=== PATIENT | male | born 1970 | race Caucasian/White ===

== ENCOUNTER → 2017-06-02 | Outpatient (CLI) | payer OTHER ==
--- NOTE | 2017-06-02 16:21 | RAD ---
Ultrasound testicular/scrotum 06/02/2017 Clinical indication: Right scrotal mass and swelling. Comparison: None. Findings: Right testis measures 3.3 x 4.4 x 2.3 cm with homogeneous echotexture and intratesticular blood flow identified. There is a small right varicocele. The visualized right epididymis is unremarkable. The left testis measures 4.4 x 3.0 x 2.5 cm with homogeneous echotexture and intratesticular blood flow identified. There is a trace left hydrocele. The left epididymis is unremarkable. Impression: 1. Small right-sided varicocele. Unilateral right varicocele, may be primary, though CT abdomen and pelvis is recommended to exclude secondary varicocele due to obstructive mass. 2. No intratesticular mass identified.
== END | disposition home or self-care (01) ==
LOC: PMG 08:41
PROVIDERS: ATTEND Physician Assistant Medical
DX: I86.1 Scrotal varices (principal)
CPT/HCPCS: 76870

== ENCOUNTER → 2020-08-27 | Outpatient (CLI) | payer OTHER ==
--- NOTE | 2020-08-27 08:40 | RAD ---
EXAM: Left elbow, 3 views. HISTORY: Wrestling injury. COMPARISON: None. FINDINGS: 3 views of the left elbow are obtained. There is minimal marginal spurring along the proxim al ulna and radial head. There is slight cortical irregularity along the radial head which is likely physiologic or related to sequela of a healed fracture. There is no elbow effusion to suggest acute f racture. IMPRESSION: Slight cortical irregularity along the radial head which is likely physiologic or due to a healed fracture, given the absence of an elbow effusion to suggest acute fracture. 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 Electronically signed by: Phuong Leggett MD (08/27/2020 8:37 AM) [id number]
== END ==
LOC: RAD 07:13
PROVIDERS: ATTEND Orthopaedic Surgery
DX: M19.022 Primary osteoarthritis, left elbow (principal)
CPT/HCPCS: 73080